=== PATIENT | female | born 1985 | race Caucasian/White ===

== ENCOUNTER 2018-02-03 12:54 | Emergency (ER) | payer OTHER ==
[~2018-02-03] VITALS: Ht 152.4 cm; Wt 50.8 kg
[2018-02-03 13:05] VITALS: Ht 152.4 cm; Wt 50.8 kg
[2018-02-03 15:38] VITALS: BP 115/73
== END 2018-02-03 15:33 | disposition home or self-care (01) ==
LOC: ED 12:54
DX: S62.346A Nondisplaced fracture of base of fifth metacarpal bone, right hand, initial encounter for closed fracture (principal); Y08.89XA Assault by other specified means, initial encounter; Y93.89 Activity, other specified; Y92.89 Other specified places as the place of occurrence of the external cause; Y99.8 Other external cause status

== ENCOUNTER 2018-02-06 18:45 | Emergency (ER) | payer OTHER ==
[~2018-02-06] VITALS: Ht 152.4 cm; Wt 50.4 kg
[2018-02-06 18:59] VITALS: Ht 152.4 cm; Wt 50.4 kg
[2018-02-06 19:55] VITALS: BP 142/89
== END 2018-02-06 21:20 | disposition home or self-care (01) ==
LOC: ED 18:45
DX: L03.211 Cellulitis of face (principal); I10 Essential (primary) hypertension